=== PATIENT | male | born 1990 | race African-American/Black ===

== ENCOUNTER 2018-02-16 15:20 | Emergency (ER) | payer OTHER, SELFPAY ==
[2018-02-16] MEDS ORDERED: LIDOCAINE 1% MPF 5 ML VIAL ONE (15:57)
[2018-02-16] MEDS ORDERED: TETANUS & DIPHTHERIA TOX,ADULT 0.5 ML VIAL ONE (15:57)
[2018-02-16] MEDS ORDERED: BUPIVACAINE 0.5% PF 10 ML VIAL ONE (15:58)
--- NOTE | 2018-02-16 16:09 | RAD REPORT ---
EXAM DESCRIPTION: RAD - Hand Left 3 View - 02/16/2018 4:01 pm CLINICAL HISTORY: finger laceration Pain COMPARISON: No comparisons FINDINGS: No fracture, dislocation or radiopaque foreign body.
--- NOTE | 2018-02-16 16:50 | ER ---
Nurse's Notes [facility] Name: Sandeep Mccoy III Age: 27 yrs Sex: Male : 1990 Arrival Date: 02/16/2018 Time: 15:23 Bed 23 Private MD: Diagnosis: Laceration without foreign body of left index finger without damage to nail Presentation: 02/16 15:25 Presenting complaint: Patient states: "I was trying to put a lock on my door and I cut aj1 my finger with the drill." Laceration noted to left index finger, bleeding lightly. Transition of care: patient was not received from another setting of care. Complicating Factors: There are no complicating factors for this patient. Onset of symptoms was February 16, 2018 at 14:30. Risk Assessment: Do you want to hurt yourself or someone else? Patient reports no desire to harm self or others. Initial Sepsis Screen: Does the patient meet any 2 criteria? No. Patient's initial sepsis screen is negative. Does the patient have a suspected source of infection? Yes: Skin breakdown/wound. Care prior to arrival: None. 15:25 Method Of Arrival: Ambulatory aj1 15:25 Acuity: SARAH 4 aj1 Triage Assessment: 15:27 General: Appears in no apparent distress. comfortable, Behavior is calm, cooperative, aj1 appropriate for age. Pain: Denies pain. Neuro: Level of Consciousness is awake, alert, obeys commands. Cardiovascular: Patient's skin is warm and dry. Respiratory: Airway is patent Respiratory effort is even, unlabored, Respiratory pattern is regular, symmetrical. Injury Description: Laceration sustained to palmar aspect of middle phalanx of left index finger is bleeding a small amount. Historical: - Allergies: 15:27 No Known Allergies; aj1 - Home Meds: 15:27 None [Active]; aj1 - PMHx: 15:27 None; aj1 - PSHx: 15:27 None; aj1 - Immunization history:: Flu vaccine is not up to date. - Social history:: Smoking status: Patient uses tobacco products, 1 pack per week. - Ebola Screening: : Patient denies travel to an Ebola-affected area in the 21 days before illness onset. Screenin:30 Abuse screen: Denies threats or abuse. Denies injuries from another. Nutritional kr2 screening: No deficits noted. Tuberculosis screening: No symptoms or risk factors identified. Fall Risk None identified. Assessment: 15:30 General: Appears in no apparent distress. comfortable, well groomed, well developed, kr2 well nourished, Behavior is calm, cooperative, appropriate for age. Pain: Complains of pain in palmar aspect of middle phalanx of left index finger Pain radiates to left hand Pain currently is 3 out of 10 on a pain scale. Quality of pain is described as aching, tender, Is continuous. Neuro: Level of Consciousness is awake, alert, obeys commands, Oriented to person, place, time, situation, Appropriate for age. Cardiovascular: Patient's skin is warm and dry. Respiratory: Airway is patent Respiratory effort is even, unlabored, Respiratory pattern is regular, symmetrical. Musculoskeletal: Circulation, motion, and sensation intact. Swelling present in left index finger. Injury Description: Laceration sustained to palmar aspect of middle phalanx of left index finger is contaminated, 0.5 to 2.5 cm long, is bleeding a small amount. 16:30 Reassessment: Patient appears in no apparent distress at this time. Patient and/or kr2 family updated on plan of care and expected duration. Pain level reassessed. Patient is alert, oriented x 3, equal unlabored respirations, skin warm/dry/pink. Marcaine and lidocaine administered by JANUARY Blevins. 17:00 Reassessment: Patient appears in no apparent distress at this time. Patient and/or kr2 family updated on plan of care and expected duration. Pain level reassessed. Patient is alert, oriented x 3, equal unlabored respirations, skin warm/dry/pink. Vital Signs: 15:27 BP 150 / 90; Pulse 79; Resp 18; Temp 97.0; Pulse Ox 100% on R/A; Pain 0/10; aj1 17:00 BP 145 / 88; Pulse 76; Resp 17; Pulse Ox 99% on R/A; kr2 ED Course: 15:23 Patient arrived in ED. as 15:26 Triage completed. aj1 15:27 Arm band placed on Patient placed in an exam room. aj1 15:30 Patient has correct armband on for positive identification. Bed in low position. Call kr2 light in reach. Pulse ox on. NIBP on. Door closed. Head of bed elevated. 15:32 Jeffrey Simmons PA is PHCP. cp 15:32 Rony Wren MD is Attending Physician. cp 15:59 X-ray completed. Portable x-ray completed in exam room. Patient tolerated procedure sg4 well. 16:00 Wound care: to laceration located on palmar aspect of middle phalanx of left middle jp3 finger was cleaned with Hibiclens, soaked in normal saline solution. 16:01 XRAY Hand LEFT 3 View In Process Unspecified. EDMS 17:00 No provider procedures requiring assistance completed. Patient did not have IV access kr2 during this emergency room visit. 17:00 Wound care: Patient washed hands with soap and water and dried. No stick dressing kr2 applied to wound and wrapped with gauze. Splint applied. Patient tolerated well. 17:06 Valeria Beard, RN is Primary Nurse. kr2 Administered Medications: 17:00 Drug: Tetanus-Diphtheria Toxoid Adult 0.5 ml {V/Stol Landing Signal Officer: [email or web address]. Exp: kr2 04/12/2020. Lot #: [id number]. } Route: IM; Site: left deltoid; 17:07 Follow up: Response: No adverse reaction kr2 Outcome: 16:49 Discharge ordered by MD. cp 17:00 Discharged to home ambulatory. kr2 17:00 Condition: good 17:00 Discharge instructions given to patient, Instructed on discharge instructions, follow up and referral plans. medication usage, wound care, Demonstrated understanding of instructions, follow-up care, medications, wound care, Prescriptions given X 1. 17:09 Patient left the ED. kr2 Signatures: Dispatcher [employer] EDIA Cristel Damian RN RN aj1 Debbie Sheets as Jeffrey Simmons PA PA cp Valeria Beard RN RN kr2 Lucien Monahan jp3 Lennie Cuba sg4 Corrections: (The following items were deleted from the chart) 17:21 16:30 Reassessment: Patient appears in no apparent distress at this time. Patient kr2 and/or family updated on plan of care and expected duration. Pain level reassessed. Patient is alert, oriented x 3, equal unlabored respirations, skin warm/dry/pink. kr2
--- NOTE | 2018-02-16 16:50 | EDPHYS ---
Physician Documentation [facility] Name: Sandeep Mccoy III Age: 27 yrs Sex: Male : 1990 Arrival Date: 02/16/2018 Time: 15:23 Bed 23 Private MD: ED Physician Rony Wren HPI: 02/16 15:47 This 27 yrs old Black Male presents to ER via Ambulatory with complaints of Laceration cp - Finger. 15:47 The patient or guardian reports a laceration, irregular. The complaints affect the cp palmar aspect of middle phalanx of left index finger. Context: resulted from use of drill. Onset: The symptoms/episode began/occurred just prior to arrival. Associated signs and symptoms: Pertinent positives: decreased sensation distally, Pertinent negatives: cyanosis distally. 15:47 Severity of symptoms: in the emergency department the symptoms are unchanged. cp Historical: - Allergies: 15:27 No Known Allergies; aj1 - Home Meds: 15:27 None [Active]; aj1 - PMHx: 15:27 None; aj1 - PSHx: 15:27 None; aj1 - Immunization history:: Flu vaccine is not up to date. - Social history:: Smoking status: Patient uses tobacco products, 1 pack per week. - Ebola Screening: : Patient denies travel to an Ebola-affected area in the 21 days before illness onset. ROS: 16:00 Constitutional: Negative for body aches, chills, fever, poor PO intake. cp 16:00 Eyes: Negative for injury, pain, redness, and discharge. cp 16:00 Cardiovascular: Negative for chest pain. 16:00 Respiratory: Negative for cough, shortness of breath, wheezing. 16:00 Abdomen/GI: Negative for abdominal pain, vomiting, diarrhea, constipation. 16:00 Skin: Positive for laceration(s), of the palmar aspect of middle phalanx of left index finger. 16:00 Neuro: Negative for numbness. 16:00 All other systems are negative. Exam: 16:05 Constitutional: The patient appears in no acute distress, alert, awake, well developed, cp well nourished. 16:05 Head/Face: Normocephalic, atraumatic. cp 16:05 Eyes: Periorbital structures: appear normal, Conjunctiva: normal, no exudate, no injection, Lids and lashes: appear normal, bilaterally. 16:05 ENT: External ear(s): are unremarkable, Nose: is normal, Mouth: Lips: moist, Oral mucosa: moist. 16:05 Chest/axilla: Inspection: normal. 16:05 Cardiovascular: Rate: normal. 16:05 Respiratory: the patient does not display signs of respiratory distress, Respirations: normal. 16:05 Musculoskeletal/extremity: decreased sensation, Tendon exam: specific tendon testing normal through active and passive range of motion 16:05 Skin: injury, laceration(s), the wound is approximately 2 cm(s), of the palmar aspect of middle phalanx of left index finger, that can be described as contaminated, irregular, with mild bleeding. Vital Signs: 15:27 BP 150 / 90; Pulse 79; Resp 18; Temp 97.0; Pulse Ox 100% on R/A; Pain 0/10; aj1 17:00 BP 145 / 88; Pulse 76; Resp 17; Pulse Ox 99% on R/A; kr2 MDM: 15:32 Patient medically screened. cp 16:00 Differential diagnosis: open fracture, tendon rupture, simple laceration. cp 16:49 Data reviewed: vital signs, nurses notes, radiologic studies, plain films. cp 16:49 Counseling: I had a detailed discussion with the patient and/or guardian regarding: the cp historical points, exam findings, and any diagnostic results supporting the discharge/admit diagnosis, radiology results, to return to the emergency department if symptoms worsen or persist or if there are any questions or concerns that arise at home. 16:49 Test interpretation: by ED physician or midlevel provider: plain radiologic studies. cp Response to treatment: the patient's symptoms have markedly improved after treatment, and as a result, I will discharge patient. 02/16 15:47 Order name: XRAY Hand LEFT 3 View; Complete Time: 16:15 cp 02/16 16:15 Interpretation: Report reviewed. 02/16 15:47 Order name: Dressing - Wound; Complete Time: 17:08 cp 02/16 15:47 Order name: Gloves, Sterile; Complete Time: 17:08 cp 02/16 15:47 Order name: Setup Suture Tray; Complete Time: 17:08 cp 02/16 16:02 Order name: Wound Care: please clean and irrigate wound; Complete Time: 16:21 02/16 16:48 Order name: Wound dressing; Complete Time: 17:06 cp 02/16 16:48 Order name: Finger Splint; Complete Time: 17:06 cp Administered Medications: 17:00 Drug: Tetanus-Diphtheria Toxoid Adult 0.5 ml {Strip Machine Tender: [employer]. Exp: kr2 04/12/2020. Lot #: [id number]. } Route: IM; Site: left deltoid; 17:07 Follow up: Response: No adverse reaction kr2 Disposition: 17:58 Co-signature as Attending Physician, Rony Wren MD. rn Disposition: 02/16/18 16:49 Discharged to Home. Impression: Laceration without foreign body of left index finger without damage to nail. - Condition is Stable. - Discharge Instructions: Laceration Care, Adult. - Prescriptions for Keflex 500 mg Oral Capsule - take 1 capsule by ORAL route every 8 hours for 10 days; 30 capsule. - Medication Reconciliation Form, Thank You Letter, Antibiotic Education, Prescription Opioid Use form. - Follow up: Private Physician; When: 7 - 10 days; Reason: Staple/Suture removal. - Problem is new. - Symptoms have improved. Signatures: Dispatcher [employer] EDMS Cristel Damian RN RN aj1 Rony Wren MD MD rn Jeffrey Simmons PA PA cp Valeria Beard RN RN kr2 Corrections: (The following items were deleted from the chart) 17:09 16:49 02/16/2018 16:49 Discharged to Home. Impression: Laceration without foreign body kr2 of left index finger without damage to nail. Condition is Stable. Forms are Medication Reconciliation Form, Thank You Letter, Antibiotic Education, Prescription Opioid Use. Follow up: Private Physician; When: 7 - 10 days; Reason: Staple/Suture removal. Problem is new. Symptoms have improved. cp 02/17 16:17 02/16 16:49 Special discussion: I discussed in detail with the patient the higher cp chance of wound infection based on his presenting history. cp
== END 2018-02-16 17:09 | disposition home or self-care (01) ==
LOC: ER 15:20
DX: S61.211A Laceration without foreign body of left index finger without damage to nail, initial encounter (principal); W29.8XXA Contact with other powered hand tools and household machinery, initial encounter; Y93.9 Activity, unspecified; Y92.9 Unspecified place or not applicable; Z23 Encounter for immunization; Z72.0 Tobacco use
CPT/HCPCS: 90714; 99284

== ENCOUNTER 2021-01-19 12:45 | Emergency (ER) | payer SELFPAY ==
[2021-01-19 13:25] LABS: Urine Blood 1+ (Negative); Urine Glucose Negative (Negative); Urine Protein Negative (Negative); Urine pH 7.5 (5.0-7.0)
[2021-01-19] MEDS ORDERED: AZITHROMYCIN 250 MG TAB ONE (13:40)
[2021-01-19] MEDS ORDERED: CEFTRIAXONE 500 MG/VIAL ONE (13:40)
[2021-01-19] MEDS ORDERED: WATER FOR INJ,STERILE 10 ML ONE (13:40)
[2021-01-19 13:48] LABS: Urine Bacteria <20 /HPF (NONE SEEN); Urine RBC <5 /HPF (NONE SEEN)
--- NOTE | 2021-01-19 13:55 | EDPHYS ---
Physician Documentation [facility] Name: Sandeep Mccoy III Age: 30 yrs Sex: Male : 1990 Arrival Date: 01/19/2021 Time: 12:50 Bed 9 Private MD: BILLY Physician Jeffrey Littlejohn HPI: 01/19 14:00 This 30 yrs old Black Male presents to ER via Ambulatory with complaints of Pain With kb Urination. 14:01 The patient presents with a possible STD exposure, symptoms include dysuria, yellow kb penile discharge, urinary symptoms, dysuria. Onset: The symptoms/episode began/occurred yesterday. Modifying factors: The symptoms are alleviated by nothing, the symptoms are aggravated by urinating. Associated signs and symptoms: Pertinent positives: dysuria, Pertinent negatives: abdominal pain, constipation, diarrhea, fever, hematuria, nausea, vomiting. Severity of symptoms: At their worst the symptoms were mild, moderate, in the emergency department the symptoms are unchanged. The patient has not experienced similar symptoms in the past. The patient has not recently seen a physician. Pt states he recently had unprotected sex and is having burning with urination and yellow penile discharge. . Historical: - Allergies: 12:58 No Known Allergies; iw - Home Meds: 12:58 None [Active]; iw - PMHx: 12:58 None; iw - PSHx: 12:58 None; iw - Immunization history:: Adult Immunizations up to date. - Social history:: Smoking status: Patient denies any tobacco usage or history of. ROS: 14:00 Constitutional: Negative for fever, chills, and weight loss. kb 14:00 : Positive for burning with urination, penile discharge. 14:00 All other systems are negative. Exam: 14:00 Constitutional: This is a well developed, well nourished patient who is awake, alert, kb and in no acute distress. Head/Face: Normocephalic, atraumatic. ENT: Moist Mucous membranes Respiratory: Respirations even and unlabored. No increased work of breathing, no retractions or nasal flaring. Skin: Warm, dry with normal turgor. Normal color. MS/ Extremity: Pulses equal, no cyanosis. Neurovascular intact. Full, normal range of motion. Neuro: Awake and alert, GCS 15, oriented to person, place, time, and situation. Moves all extremities. Normal gait. Psych: Awake, alert, with orientation to person, place and time. Behavior, mood, and affect are within normal limits. Vital Signs: 12:57 BP 146 / 94; Pulse 89; Resp 16; Temp 98.6; Pulse Ox 100% on R/A; Weight 81.65 kg; iw 13:29 BP 136 / 90; Pulse 85; Resp 16; Pulse Ox 100% on R/A; ld1 MDM: 13:00 Patient medically screened. kb 13:01 Patient medically screened. minesh 14:00 Data reviewed: vital signs, nurses notes. Data interpreted: Pulse oximetry: on room air kb is 100 %. Interpretation: normal. Counseling: I had a detailed discussion with the patient and/or guardian regarding: the historical points, exam findings, and any diagnostic results supporting the discharge/admit diagnosis, the need for outpatient follow up, a family practitioner, to return to the emergency department if symptoms worsen or persist or if there are any questions or concerns that arise at home. 01/19 13:01 Order name: Urine Microscopic Only; Complete Time: 13:54 kb 01/19 13:25 Order name: Urine Dipstick-Ancillary; Complete Time: 13:25 EDMS 01/19 13:01 Order name: Urine Dipstick-Ancillary (obtain specimen); Complete Time: 13:24 kb 01/19 13:50 Order name: Urine Culture EDMS Administered Medications: 13:24 Drug: Rocephin (cefTRIAXone) 500 mg Route: IM; Site: left gluteus; ld1 13:24 Follow up: Response: No adverse reaction ld1 13:24 Drug: Zithromax (azithromycin) 1 grams Route: PO; ld1 13:24 Follow up: Response: No adverse reaction ld1 Disposition: 01/20 05:51 Co-signature as Attending Physician, Jeffrey Littlejohn MD I agree with the assessment and [facility] plan of care. Disposition Summary: 01/19/21 13:55 Discharge Ordered Location: Home kb Condition: Stable kb Diagnosis - Unspecified sexually transmitted disease kb Followup: kb - With: Emergency Department - When: As needed - Reason: Worsening of condition Followup: kb - With: Private Physician - When: 2 - 3 days - Reason: Recheck today's complaints, Continuance of care, Re-evaluation by your physician Discharge Instructions: - Discharge Summary Sheet kb - Preventing Sexually Transmitted Infections, Adult kb Forms: - Medication Reconciliation Form kb - Thank You Letter kb - Antibiotic Education kb - Prescription Opioid Use kb Signatures: Dispatcher [employer] Marie Strange FNP-C FNP-Jeffrey James MD MD cha Williams, Irene, RN RN iw Junie Roblero RN RN ld1
--- NOTE | 2021-01-19 13:55 | ER ---
Nurse's Notes [facility] Name: Sandeep Mccoy III Age: 30 yrs Sex: Male : 1990 Arrival Date: 01/19/2021 Time: 12:50 Bed 9 Private MD: Diagnosis: Unspecified sexually transmitted disease Presentation: 01/19 12:57 Chief complaint: Patient states: burning with urination since yesterday, no discharge, iw recently had unprotected sex. Coronavirus screen: At this time, the client does not indicate any symptoms associated with coronavirus-19. Ebola Screen: Patient negative for fever greater than or equal to 101.5 degrees Fahrenheit, and additional compatible Ebola Virus Disease symptoms Patient denies exposure to infectious person. Patient denies travel to an Ebola-affected area in the 21 days before illness onset. No symptoms or risks identified at this time. Initial Sepsis Screen: Does the patient meet any 2 criteria? No. Patient's initial sepsis screen is negative. Does the patient have a suspected source of infection? No. Patient's initial sepsis screen is negative. Risk Assessment: Do you want to hurt yourself or someone else? Patient reports no desire to harm self or others. Onset of symptoms was January 18, 2021. 12:57 Method Of Arrival: Ambulatory iw 12:57 Acuity: SARAH 4 iw Historical: - Allergies: 12:58 No Known Allergies; iw - Home Meds: 12:58 None [Active]; iw - PMHx: 12:58 None; iw - PSHx: 12:58 None; iw - Immunization history:: Adult Immunizations up to date. - Social history:: Smoking status: Patient denies any tobacco usage or history of. Screenin:29 Abuse screen: Denies threats or abuse. Denies injuries from another. Nutritional ld1 screening: No deficits noted. Tuberculosis screening: No symptoms or risk factors identified. Fall Risk None identified. Assessment: 13:28 General: Appears in no apparent distress. comfortable, Behavior is calm, cooperative, ld1 appropriate for age. Pain: Denies pain. Neuro: Level of Consciousness is awake, alert, obeys commands, Oriented to person, place, time, situation. Cardiovascular: Capillary refill < 3 seconds Patient's skin is warm and dry. Respiratory: Airway is patent Respiratory effort is even, unlabored, Respiratory pattern is regular, symmetrical. GI: Abdomen is flat, non-distended. : Reports pain with urination. :. EENT: No signs and/or symptoms were reported regarding the EENT system. Derm: No signs and/or symptoms reported regarding the dermatologic system. Musculoskeletal: No signs and/or symptoms reported regarding the musculoskeletal system. Vital Signs: 12:57 BP 146 / 94; Pulse 89; Resp 16; Temp 98.6; Pulse Ox 100% on R/A; Weight 81.65 kg; iw 13:29 BP 136 / 90; Pulse 85; Resp 16; Pulse Ox 100% on R/A; ld1 ED Course: 12:50 Patient arrived in ED. as 12:58 Triage completed. iw 12:59 Arm band placed on. iw 13:00 Marie Obregon FNP-C is PHCP. kb 13:00 Jeffrey Littlejohn MD is Attending Physician. kb 13:24 Urine Microscopic Only Sent. ld1 13:29 Patient has correct armband on for positive identification. Placed in gown. Bed in low ld1 position. Call light in reach. Side rails up X2. Pulse ox on. NIBP on. Door closed. Noise minimized. Warm blanket given. 13:29 No provider procedures requiring assistance completed. ld1 13:29 Patient did not have IV access during this emergency room visit. ld1 Administered Medications: 13:24 Drug: Rocephin (cefTRIAXone) 500 mg Route: IM; Site: left gluteus; ld1 13:24 Follow up: Response: No adverse reaction ld1 13:24 Drug: Zithromax (azithromycin) 1 grams Route: PO; ld1 13:24 Follow up: Response: No adverse reaction ld1 Outcome: 13:55 Discharge ordered by . kb 14:03 Discharged to home ambulatory. ld1 14:03 Condition: stable 14:03 Discharge instructions given to patient, Instructed on discharge instructions, follow up and referral plans. Demonstrated understanding of instructions, follow-up care. 14:03 Patient left the ED. ld1 Signatures: Marie Obregon FNP-C FNP-Ckb Martinez, Amelia as Williams, Irene, RN RN iw Junie Roblero RN RN ld1 Corrections: (The following items were deleted from the chart) 12:59 12:57 BP 146 / ???; Pulse 89bpm; Resp 16bpm; Pulse Ox 100% RA; Temp 98.6F; 81.65 kg; iw iw
[2021-01-20 03:29] VITALS: BP 136/90; O2SAT 100
[2021-01-20 03:30] VITALS: TEMP 98.6
== END 2021-01-19 14:03 | disposition home or self-care (01) ==
LOC: ER 12:45
DX: A64 Unspecified sexually transmitted disease (principal)
CPT/HCPCS: 81003; 81015; 87086; 87088; 96372; 99283; J0696